=== PATIENT | female | born 1970 ===

== ENCOUNTER 2017-07-04 06:32 | Inpatient (IN) | payer OTHER ==
[2017-06-30 15:29] VITALS: BMI 33.0
[2017-07-04] MEDS ORDERED: Propofol 10 mg/ml Inj (20 ML) ONE ×2 (07:03→14:30)
[2017-07-04] MEDS ORDERED: Midazolam 2 MG/2 ML VIAL ONE ×2 (07:04→14:54)
[2017-07-04] MEDS ORDERED: Rocuronium 10 mg/ml (5 ml) ONE ×4 (07:04→18:16)
[2017-07-04] MEDS ORDERED: Succinylcholine 200 mg/10 ml Inj IV ONE ×2 (07:04→14:31)
[2017-07-04] MEDS ORDERED: Neostigmine Methylsulfate 3mg/3ml Syringe IV ONE ×2 (07:17→17:37)
[2017-07-04] MEDS ORDERED: Bupivacaine 0.5% Inj(30mL) ONE ×2 (07:19→14:50)
[2017-07-04] MEDS ORDERED: Lactated Ringer's 1,000 ML IV ONE ×4 (07:48→21:23)
[2017-07-04] MEDS ORDERED: ePHEDrine 50 mg/ml Inj ONE (14:30)
[2017-07-04] MEDS ORDERED: Lidocaine 4% (Laryng-O-Jet) Kit MM ONE (14:56)
[2017-07-04] MEDS ORDERED: Sevoflurane - Inhalation Anesthetic Liq (250 ml) ONE (16:00)
[2017-07-04] MEDS ORDERED: Esmolol 100 mg/10ml Inj IV ONE (17:19)
[2017-07-04] MEDS ORDERED: Dexamethasone 4 mg/1 ml ONE (18:24)
[2017-07-04] MEDS ORDERED: APROTININ/FIBRINOGEN(TISSEEL) ONE (18:34)
[2017-07-04] MEDS ORDERED: SULFANILAMIDE (AVC) VAG CREAM VG ONE (19:04)
--- NOTE | 2017-07-04 19:18 | PCM.SURG1 ---
Surgeon's Initial Post Op Note - Surgeon's Notes Surgeon: corwin delcid MD Sterile Supervisor: Ramona Bello Type of Anesthesia: General Endo, Local Pre-Operative Diagnosis: Complete procedentia. Cystocele. Rectocele. Chronic pelvic pain. Urinary incontinence Operative Findings: Complete uterine prolapse. stage IV cystocele. Stage IV rectocele. Intraopelvic adhesions. fibroid uterus Post-Operative Diagnosis: Complete procedentia. Cystocele. Rectocele. Chronic pelvic pain. Urinary incontinence. Fibroid uterus Operation Performed: Total robotic hysterectomy bilateral salpingectomy >250g. Right oophorectomy. Uterosacroligament suspenssion. Enterolysis. Exploration of ureters. Diagnostic cystoscopy Specimen/Specimens Removed: uterus cervix and tubes right ovary Estimated Blood Loss: EBL {In ML}: 20 Drains Used: No Drains Post-Op Condition: Good Date of Surgery/Procedure: 07/04/17 Time of Surgery/Procedure: 19:19
--- NOTE | 2017-07-04 19:23 | PCM.OP ---
Operative Report - Operative Report Date of Surgery/Procedure: 07/04/17 Time of Surgery/Procedure: 19:20 Surgeon: Sujey Hernandez MD Supervisor Polishing: Ramona Bello Anesthesia/Sedation: General with ET tube Pre-Operative Diagnosis: Complete uterine prolapse. Stage IV cystocele. Stage IV rectocele. Chronic pelvic pain. Urinary incontinence Post-Operative Diagnosis: Complete uterine prolapse. Stage IV cystocele. Stage IV rectocele. Chronic pelvic pain. Urinary incontinence. Fibroid uterus Indication for Surgery: worsening pelvic pain. complete prolapse uterus. urinary incontinence Operative Findings: complete prolapse fibroid uterus. complete cystocele and rectocele. significant adhesions bowel and peritoneal. normal bladder anatomy as per cystoscopy and ureters efluxing urine freely Procedure/Operation Description: Total robotic hysterectomy bilateral salpingectomy right oophorectomy. Uterosacroligament suspenssion. Enterolysis. exploration of ureters. Diagnostic cystoscopy. DESCRIPTION OF OPERATION: This is a -- years old female with long-standing and worsening symptoms of bladder prolapse and mixed urinary incontinence for several years. The patient is reporting vaginal bulge, her bladder protrudes out the vagina, urinary urgency and frequency daily, leakage of urine upon any exertion, coughing sneezing. For the past several years, these symptoms of involuntary leakage of urine and vaginal pressure have been worsening; she describes these symptoms as debilitating and adversely affecting her quality of life. Several years ago, she completed a robotic-assisted hysterectomy and uterosacral ligament suspension without mesh as per patients request. Risk of recurrence of anterior vaginal wall prolapse was reviewed in detail, and despite this all the patient elected to proceed with uterosacral ligament suspension without mesh. At this time, the patient presents with severe vaginal vault prolapse stage III cystocele, vaginal vault apical prolapse extending all the way to the introitus. A comprehensive urinary incontinence work up was completed which included a TVUS , multichannel complex urodynamic study , urinalysis and cultures. The preoperative workup supports a diagnosis of mixed urinary incontinence and symptomatic large cystocele stage 4 and severe apical vaginal vault prolapse. The patient failed conservative management which included a failed pessary use, Kegels exercises as well as lifestyle changes and other pelvic floor rehabilitation exercises. A prolong and detailed discussion about conservative versus surgical management of urinary incontinence and bladder prolapse was completed. The patient elected to proceed with surgical management of bladder prolapse and urinary incontinence. A decision was made to proceed with robotic assisted sacrocolpopexy and mid- urethral sling procedure using polypropylene mesh material. After a detailed discussion regarding the pros and cons of sling procedure and the utilization of polypropylene mesh material, all risks were reviewed including but not limited to, risk of infection, mesh erosion, postoperative pain and dyspareunia. In addition, the FDA warning about mesh utilization for prolapse and incontinence surgery was reviewed in details, and a detailed and specific written informed consent was obtained. The patient elected to proceed with a Midurethral sling and prolapse repair today fully understanding and accepting the risks associated with utilizing polypropylene mesh material. Other alternatives were also offered to the patient, including a biological graft such as porcine sling as well as the patient owns fascia for sling material and prolapse repair, she elected to proceed with a polypropylene mesh sling and elevate despite all the associated risks. After proper consent was obtained from the patient, all risks, benefits, indications and alternatives of the procedure were once again reviewed with the patient. patient was taken to the operating room, placed in the dorsolithotomy position; general anesthesia was obtained without difficulty. She was placed in the dorsal lithotomy position, her legs were placed in adjustable Ab stirrups, and careful attention was placed not to over flex or over rotates the lower extremities and the hip or knee joints. A 20 Irish three-way Humphrey catheter was inserted at the outset of the procedure under sterile conditions. She was prepped and draped appropriately for robotic assisted sacrocolpopexy as well as mid urethral sling procedure. The sponge stick was placed in the vagina to aid in manipulation. While tenting the abdominal wall, A Veress needle was inserted through the umbilicus at a 45 degree angle. With CO2 insufflation, there was a drop in intraperitoneal pressure confirming correct placement. Insufflation was carried out to approximately 3 liters an approximate pressure of 15mm. Then, utilizing the Razient trocar system, the Veress was removed and reinserted with a Veress sheath, following which the Veress needle was removed again and a 10 mm trocar was inserted through the sheath. A robotic camera was inserted through this trocar and an initial survey of the patients abdomen revealed the following; extensive intra-abdominal and intrapelvic adhesions noted throughout the pelvic cavity, possibly from prior surgeries. Multiple loops of bowel were adherent to the pelvic sidewall as well as to the posterior cul-de-sac. The patient had her uterus surgically removed. Under direct visualization, a meticulous placement of robotic trochars was accomplished. All robotic trochars were inserted through an 8 mm incision in the following locations. The first robotic port was placed approximately 5 cm superior to the right superior iliac crest, the first robotic port was placed approximately 5 cm superior to the left superior iliac crest, the third robotic port was placed in the right upper quadrant, approximately 7 cm right lateral of the camera port in the midline, and an operations and intelligence assistant port was placed approximately 7 cm left lateral of the camera port approximately in the left upper quadrant. The operations and intelligence assistant port was approximately 1 cm in diameter, and we once again used to Razient trocar system in a similar fashion to the camera trocar. The patient was placed in moderate Trendelenburg position. Lateral side parallel da Adelina robotic docking was accomplished without difficulty. The following instruments were utilized for this procedure: Monopolar handy, PK, Prograsp. Prior to the start of the procedure, meticulous and careful lysis of adhesions as well as lysis of bowel adhesions was accomplished utilizing sharp and blunt dissections. Multiple loops of bowels were lysed off the pelvic sidewall in close proximity to the ureters on both right and left side. As well as extensive lysis of bowel adhesions from the posterior cul-de-sac to enable the completion of the sacrocolpopexy. Due to the close proximity of these tight adhesions to both ureters, exploration of ureters was necessary to ascertain safety of both ureters along the course from the pelvic brim to the bladder. The pelvic sidewall was entered in close proximity to do so psoas muscles, and the ureters were identified and traced all the way down to the bladder. Following the exploration of both ureters, the sacrocolpopexy procedure was to begin. Attention was then turned to the presacral space. The peritoneum overlying it was tented upward and incised sagittally all the way down to the posterior vaginal wall along the pericolic gutter keeping the right ureter in view at all times. The posterior vaginal wall was dissected free from the peritoneum using monopolar Endoshears. Two obturators had been placed, one in the vagina, one in the rectum, to assist with this dissection. The dissection was carried out to 5 cm from the vaginal apex/vaginal cuff. A similar dissection was carried out anteriorly with the same technique. Excellent hemostasis was noted. A small incision was made over the longitudinal ligament on the sacrum, blunt and sharp dissection was utilized to isolate the longitudinal ligament and achieve hemostasis. This incision was continuous with the longitudinal incision along the pericolic gutter extending all the way to the posterior aspect of the vaginal cuff. There Y polypropylene mesh specifically designed for sacrocolpopexy was placed in the peritoneal cavity. The short end of the Y mash flap was anchored with 6 interrupted CV-2 Emerson-Renny sutures to the posterior vaginal wall. The anterior short end of the Y mesh was anchored with 6 interrupted CV 2 Emerson-Renny sutures to the anterior vaginal wall. Tension was performed to lift the vagina into the pelvic cavity to approximate the full length of the vagina in a tension-free fashion, while applying gentle upward tension the length of the long arm of the Y mesh was determined, trimmed off, and sutured anchored to the longitudinal ligament on the sacrum. Excellent hemostasis was noted throughout the procedure. The peritoneum over the Y mesh was closed entirely utilizing a 2-0 Monocryl suture in continuous fashion. The peritoneum was then closed with running 2-0 Vicryl with Lapra-Tys. The pelvis was irrigated copiously and freed of all clots and debris. Excellent hemostasis was noted. While removing under direct visualization, the fascia, the 12 mm trocar, was closed with a 0 Vicryl suture and then all ports were removed with excellent hemostasis. The umbilical fascia was closed with a [id number] 0 Vicryl suture. The skin was closed with 4-0 subcuticular Vicryl. Next was the mid urethral sling procedure, and the procedure well and is followed: The anterior vaginal wall over the Midurethral area was grasped with a pair of Allis clamps and tenting the vaginal wall from the underlying urethra. Local anesthetic solution of 0.25% Marcaine with epinephrine diluted 1:1 was used to infiltrate the periurethral space. A total of 20 cc was utilized. Using a scalpel, a Midurethral vertical incision about 1 cm was made through the vaginal epithelium and periurethral fascia. Careful lateral sharp dissection using Metzenbaum scissors towards the inferior pubic ramus to eventually allow the sling graft to lie flat against the urethra. Next , the sling mesh was loaded onto the needle tip. The needle tip was inserted through one side of the incision towards the medial edge of the obturator foramen approximately 45 degrees of the horizontal plane. Using an arching motion, the needle tip was advanced through pushing the obturator internus muscle. The needle was released from the graft and loaded on the other side of the sling ready for deployment to the contralateral side. Ensuring the sling is flat on the urethra and not twisted, the needle was advanced in an arching motion towards the obturator internus muscle on the opposite site. Attention was readdressed to allow a flat placement with tension- free sling on the midurethra region. Following saline irrigation and good hemostasis was noted, the vaginal mucosa was closed with 2-0 Vicryl in a locking fashion. At this time , the Humphrey catheter was removed and a diagnostic cystoscopy was performed. The bladder was distended with about 300 cc of fluid. Both ureteral orifices were noted to be fluxing urine normally. The trigone was normal. There were no noted abnormalities with any evidence of any compromise of the lower urinary tract with mesh material, sutures or instruments. The patient emerged from general anesthesia without any difficulty. The patient was taken to the recovery room in stable condition. Prior to incision patient received prophylactic antibiotics , prior to closure sponge lap and needle counts are correct x2. The 2-inch iodoform gauze vaginal packing was then placed to prevent hematoma formation underneath the vaginal mucosa. Needle, sponge, and instrument counts were correct. Estimated Blood Loss: 20 Blood Replaced: none Sponge/Instrument Count: correct count times 2 Drains: none Complications: none Specimen: uterus tubes cervix and right ovary Discharge & Condition: discharge with criteria on day one
[2017-07-04] MEDS ORDERED: Oxycodone/Acetaminophen 5/325 mg Tab PO PRN (19:26)
[2017-07-04] MEDS ORDERED: HYDROmorphone 0.5 mg/0.5 ml ISec IVP PRN (19:49)
[2017-07-04] MEDS ORDERED: Lactated Ringer's 1,000 ML IV SCH (20:00)
[2017-07-05] MEDS: ceFAZolin IV 2 gm in Dextrose 2 GM/50 ML BAG IVPB SCH ×2 (00:56→08:57)
[2017-07-05] MEDS ORDERED: Levothyroxine 50 MCG TAB PO SCH (06:30)
[2017-07-05] MEDS ORDERED: Pneumococcal 23-Valent Vaccine IM ONE (07:00)
--- NOTE | 2017-07-05 08:00 | CP.PCM.DIS ---
Provider - Provider Date of Admission: 07/04/17 19:26 Attending physician: Sujey Powell MD Primary care physician: Jay Wilde MD Time Spent in preparation of Discharge (in minutes): 20 Hospital Course - Lab Results Lab Results: Most Recent Lab Values POC Glucose (mg/dL) 90 mg/dL (65-110) 07/05/17 05:31 Blood Type B POSITIVE 07/04/17 07:05 Blood Type Confirm B POSITIVE 07/04/17 09:05 Antibody Screen Negative 07/04/17 07:05 BBK History Checked No verified bt 07/04/17 07:05 07/05/17 09:20 07/05/17 09:20 - Hospital Course Hospital Course: 47 y/o F presented to [facility] for elective robotic hysterectomy and colpopexy. Pt tolerated the procedure well w/ no complications. Pt was kept overnight for monitoring. This morning, pt has no complaints. Pt denies F/C, N/V. admits to some suprapubic tenderness. Tolerating diet. Pt cleared for discharge to home w / instructions to follow up w/ Dr. Powell in office in 7-10 days. Discharge Exam - Head Exam Head Exam: NORMAL INSPECTION - Eye Exam Eye Exam: Normal appearance - ENT Exam ENT Exam: Mucous Membranes Moist - Respiratory Exam Respiratory Exam: NORMAL BREATHING PATTERN. absent: Accessory Muscle Use, Respiratory Distress - GI/Abdominal Exam GI & Abdominal Exam: Soft, Tenderness (appropriate TTP suprapubic). absent: Distended, Guarding, Rebound Additional comments: incisions c/d/i - Exam Additional comments: zapata and vaginal packing removed - Extremities Exam Extremities exam: normal inspection - Neurological Exam Neurological exam: Alert, Oriented x3 - Psychiatric Exam Psychiatric exam: Normal Affect, Normal Mood - Skin Skin Exam: Dry, Intact, Normal Color, Warm Discharge Plan - Follow Up Plan Condition: GOOD Disposition: HOME/ ROUTINE Instructions: Robot Assisted Laparoscopic Hysterectomy (DC), Care For Your Absorbable Stitches (DC), Salpingo-oophorectomy (DC) Additional Instructions: Follow up with Dr Powell in 7-10 days. Referrals: Jay Wilde MD [Primary Care Provider] - Sujey Powell MD [Staff Provider] -
[2017-07-05 08:07] VITALS: BP 146/94; PULSE 87; RESP 20; TEMP 98.3; O2SAT 96
[2017-07-05 09:34] LABS: HEMOGLOBIN 9.4 g/dL (12.0-16.0); MEAN CELL VOLUME 78.1 fl (81.0-99.0); MEAN CORPUSCULAR HEMOGLOBIN 26.2 pg (27.0-31.0); MEAN CORPUSCULAR HGB CONC 33.5 g/dL (33.0-37.0); RBC 3.59 Mil/uL (3.80-5.20); RED CELL DISTRIBUTION WIDTH 18.9 % (11.5-14.5); WHITE BLOOD COUNT 10.2 K/uL (4.8-10.8)
[2017-07-05 09:55] LABS: CALCIUM 9.1 mg/dL (8.4-10.2)
== END 2017-07-05 14:54 | disposition home or self-care (01) | DRG 359 ==
LOC: H.OPSURG 06:32 → H.MEDSURG1 19:26
PROVIDERS: ADMIT Obstetrics & Gynecology; ATTEND Obstetrics & Gynecology
PROC: 8E0W4CZ Robotic Assisted Procedure of Trunk Region, Percutaneous Endoscopic Approach (ICD-10-PCS; 2017-07-04)
PROC: 0UT74ZZ Resection of Bilateral Fallopian Tubes, Percutaneous Endoscopic Approach (ICD-10-PCS; 2017-07-04)
PROC: 0UT04ZZ Resection of Right Ovary, Percutaneous Endoscopic Approach (ICD-10-PCS; 2017-07-04)
PROC: 0UT94ZZ Resection of Uterus, Percutaneous Endoscopic Approach (ICD-10-PCS; 2017-07-04)
PROC: 0USG4ZZ Reposition Vagina, Percutaneous Endoscopic Approach (ICD-10-PCS; principal; 2017-07-04 07:45)
PROC: 0TSD4ZZ Reposition Urethra, Percutaneous Endoscopic Approach (ICD-10-PCS; 2017-07-04 07:45)
PROC: 0DNW4ZZ Release Peritoneum, Percutaneous Endoscopic Approach (ICD-10-PCS; 2017-07-04 07:45)
PROC: 0UUG4JZ Supplement Vagina with Synthetic Substitute, Percutaneous Endoscopic Approach (ICD-10-PCS; 2017-07-04 07:45)
PROC: 3E0234Z Introduction of Serum, Toxoid and Vaccine into Muscle, Percutaneous Approach (ICD-10-PCS; 2017-07-05)
DX: N81.3 Complete uterovaginal prolapse (principal); D25.9 Leiomyoma of uterus, unspecified; N39.46 Mixed incontinence; N73.6 Female pelvic peritoneal adhesions (postinfective); N81.6 Rectocele; Z23 Encounter for immunization; I10 Essential (primary) hypertension; E11.9 Type 2 diabetes mellitus without complications; E03.9 Hypothyroidism, unspecified; E55.9 Vitamin D deficiency, unspecified; K21.9 Gastro-esophageal reflux disease without esophagitis